=== PATIENT | female | born 1995 | race Caucasian/White ===

== ENCOUNTER 2022-02-24 16:15 | Emergency (ER) | payer OTHER, SELFPAY ==
[2022-02-24 16:17] VITALS: BP 125/88; PULSE 94; RESP 15; TEMP 36.6; O2SAT 99; BMI 23.4
--- NOTE | 2022-02-24 16:48 | US_ITS ---
We are attempting to reach an attending provider to discuss findings. An addendum with communication details will be sent when the communication is complete. STUDY: FIRST TRIMESTER OBSTETRICAL ULTRASOUND REASON FOR EXAM: Female, 26 years old. right side pain -- hcg yesterday 2200, neg IUP outside hospital TECHNIQUE: Transvaginal US was obtained to better visualized the ovaries. TECHNICAL QUALITY: Adequate. PRIOR ULTRASOUND: None. FINDINGS: There is visualization of a single gestational sac and decidual reaction within the right cornual. The diameter (MSD) measures 3.6 mm, indicating an estimated gestational age (EGA) of 5 weeks, 1 days. The gestational sac shape is within normal limits. There is no demonstrated yolk sac. The placenta is non-visualized. There is no demonstrated embryo ( pole). The estimated gestation age (EGA) by LMP is 5 weeks, 1 days. The estimated date of delivery (KLAUS) by LMP is 8.9.23. The estimated gestation age (EGA) by US is 5 weeks, 1 days. The estimated date of delivery (KLAUS) by US is 8.9.23. The uterus measures 8.3 cm. There is no demonstrated uterine fibroid. The cervix is closed. The right ovary measures 4.5 cm. There is no right ovarian cyst. There is a right adnexal mass measuring 28 mm. The left ovary measures 4.3 cm. There is no left ovarian cyst. There is no visualized left adnexal mass or complex lesion. There is a moderate amount of fluid in the cul de sac. Within the fluid there is an echogenic focus measuring 3.6mm which may be related to blood products. US/Transvaginal w/Preg US IMPRESSION: There is the appearance of a gestational sac in the right cornual region concerning for a cornual ectopic . There is a moderate amount of fluid in the cul de sac. Critical finding called and case discussed. Electronically Signed: Tam Osullivan MD at 18:19 EST ,
--- NOTE | 2022-02-24 16:53 | EDS_ITS ---
HPI HPI - Female History of Present Illness Chief Complaint: Informant: patient and spouse/S.O. Narrative Narrative: 3 weeks gestation by dates presents after discussing with her OB Dr. Marvin told to return to the ED for evaluation. She was seen in the office 2 days ago right pelvic discomfort. Her office ultrasound was negative had questionable right-sided cyst. I was sent to the ED to rule out ectopic . She had an ectopic on left side 6 years ago that ruptured need emergent surgery in [facility]. She is told if again to get checked out. She followed up. She went to hospital in [place] and worked up in the ED. Reviewing records through [employer] patient had hCG of 2200 and ultrasound negative for IUP . She was told to follow-up in 2 days. Persistent discomfort for 2 days however today reported fever. No vomiting or diarrhea. No urinary symptoms. Today noted mild spotting. Pain has not worsened. Prior similar symptoms: No PFSH PFSH Home Medications NK 02/24/22 [History Last Taken Unknown] Allergy/AdvReac Type Severity Reaction Status Date / Time No Known Allergies Allergy Verified 02/24/22 16:19 Social History Smoking Status: Never smoker ROS ROS ED Constitutional Constitutional ED: Reports fever(s); Denies chills or sweats Eyes Eyes: Denies change in vision ENT ENT ED: Denies dysphagia or sore throat Cardiovascular Cardiovascular: Denies chest pain, leg edema, palpitations or racing heartbeat Respiratory/Chest Respiratory/Chest: Denies cough, dyspnea or dyspnea on exertion Gastrointestinal Gastrointestinal: Denies abdominal pain, diarrhea, nausea or vomiting Genitourinary Genitourinary ED: Reports other Details: Right lower pain with vaginal spotting. ; Denies dysuria, hematuria or urinary frequency Musculoskeletal Musculoskeletal: Denies back pain, extremity pain or neck pain Integumentary Denies rash or wounds Neurologic Neurologic: Denies headache(s), paresthesias or weakness EXAM Physical Exam Const Vital Signs: 02/24/22 16:17 02/24/22 18:16 02/24/22 20:07 Temperature 97.8 F Temperature Source Temporal Pulse Rate 94 87 Respiratory Rate 15 16 15 Blood Pressure 125/88 H 143/79 H Blood Pressure Mean 100 100 Pulse Ox 99 97 Oxygen Delivery Method Room Air Room Air 02/24/22 21:19 Temperature 97.3 F L Temperature Source Pulse Rate 83 Respiratory Rate 15 Blood Pressure 143/79 H Blood Pressure Mean 100 Pulse Ox 100 Oxygen Delivery Method Positive well nourished and well developed General Appearance ED: well developed and NAD HEENT Reports moist mucous membranes normocephalic and atraumatic Eyes PERRL, EOMs intact bilaterally and conjunctivae normal General Eye ED: Yes normal appearance of both eyes Neck no lymphadenopathy and supple General: Negative for tenderness Chest Wall Chest: Negative for tenderness Resp normal respiratory effort and normal air movement Effort and Inspection: symmetric chest movement; Negative for respiratory distress Cardio regular rate, regular rhythm and no murmurs Peripheral Pulses: pulses 2+ throughout GI normal to inspection, nondistended, normoactive bowel sounds GI Narrative: Mild tenderness more in the right lower quadrant. There is no pelvic tenderness. No guarding or rebound. Negative Rovsing's. Palpation: Negative for guarding or rebound tenderness present Back/Spine no CVA tenderness and no thoracic nor lumbar tenderness Extremity normal to inspection General Extremety ED: Negative for edema or tenderness General Extremity: Negative for edema Neuro oriented x3 and no sensory deficits noted Sensorium / Orientation: awake and alert Skin no rashes or lesions noted and no wounds MDM MDM MDM Narrative Medical decision making narrative: Patient with a nonsurgical abdomen. She is positive yesterday with hCG 2208 with a negative ultrasound. Persistent symptoms today. Work-up initiated. White count 7.9 hemoglobin 11.7. hCG quant today 2523. Rh+ blood type a. Ultrasound discussion with radiology has a right corneul ectopic . There is moderate free fluid in the pelvis possibly blood. Her blood pressure stable. I spoke with on-call ASSISTANT TECHNICIAN Dr. De Leon, region is high risk. She reviewed the imaging spoke with her colleagues and to [facility] with Dr. Hubbard, patient will be transported to [facility] OB triage for evaluation and treatment there. Patient and family updated. Lab Data Attestation: I reviewed the patient's lab results. Labs: Laboratory Results - last 24 hr 02/24/22 02/24/22 02/24/22 16:57 16:57 16:57 WBC 7.9 RBC 4.62 Hgb 11.7 L Hct 37.4 MCV 81.0 MCH 25.3 L MCHC 31.3 L RDW Std Deviation 37.3 RDW Coeff of [place] 12.8 Plt Count 231 MPV 10.0 Immature Gran % (Auto) 0.300 Neut % (Auto) 63.4 Lymph % (Auto) 25.4 [place] % (Auto) 9.4 Eos % (Auto) 1.1 Baso % (Auto) 0.4 Absolute Neuts (auto) 5.0 Absolute Lymphs (auto) 2.01 Nucleated RBC % 0 PT 13.3 INR 1.0 APTT 26.6 Sodium 140 Potassium 3.6 Chloride 108 H Carbon Dioxide 24.0 Anion Gap 8 BUN 10 Creatinine 0.67 Estim Creat Clear Calc 127.23 Est GFR (MDRD) Af Amer 136 Est GFR (MDRD) Non-Af 112 BUN/Creatinine Ratio 15.0 Glucose 108 H Calcium 9.1 HCG, Quant Urine Color Urine Clarity Urine pH Ur Specific [place] Urine Protein Urine Glucose (UA) Urine Ketones Urine Occult Blood Urine Nitrite Urine Bilirubin Urine Urobilinogen Ur Leukocyte Esterase Urine Test Blood Type Antibody Screen 02/24/22 02/24/22 02/24/22 16:57 17:00 18:36 WBC RBC Hgb Hct MCV MCH MCHC RDW Std Deviation RDW Coeff of [place] Plt Count MPV Immature Gran % (Auto) Neut % (Auto) Lymph % (Auto) [place] % (Auto) Eos % (Auto) Baso % (Auto) Absolute Neuts (auto) Absolute Lymphs (auto) Nucleated RBC % PT INR APTT Sodium Potassium Chloride Carbon Dioxide Anion Gap BUN Creatinine Estim Creat Clear Calc Est GFR (MDRD) Af Amer Est GFR (MDRD) Non-Af BUN/Creatinine Ratio Glucose Calcium HCG, Quant 2523 H Urine Color Yellow Urine Clarity Clear Urine pH 6.5 Ur Specific [place] 1.010 Urine Protein Negative Urine Glucose (UA) Normal Urine Ketones Negative Urine Occult Blood Negative Urine Nitrite Negative Urine Bilirubin Negative Urine Urobilinogen Normal Ur Leukocyte Esterase Negative Urine Test Positive H Blood Type A POSITIVE Antibody Screen NEGATIVE Radiography Diagnostic Testing: Clinical Impression(s) from Imaging Studies Obstetrics Ultrasound 02/24/22 16:48 IMPRESSION: There is the appearance of a gestational sac in the right cornual region concerning for a cornual ectopic . There is a moderate amount of fluid in the cul de sac. Critical finding called and case discussed. Electronically Signed: Tam Osullivan MD at 18:19 EST , ADDENDUM: 02/24/22 1853 IMPRESSION: There is the appearance of a gestational sac in the right cornual region concerning for a cornual ectopic . There is a moderate amount of fluid in the cul de sac. Critical finding called and case discussed. N.B. : The above Results were Read Back by Tam Osullivan MD to MD bibi, and understanding confirmed on 02/24/2022 18:46:14 (ET). Electronically Signed: Tam Osullivan MD at 18:19 EST , Critical Care Time Critical Care Time: Yes Critical care time (excluding procedures): 30-74 minutes, Discussing w/Patient &/or Family/Food Service Order Clerk, Discussing w/Consultants, Arranging Admission or Transfer, Performing Direct Patient Care at Bedside and - (35 minutes) Discharge Plan Triage Chief Complaint: ED Provider: Maciej Guevara Dx/Rx/DC Orders Clinical Impression: Ectopic , Pelvic pain Prescriptions: No Action NK Primary Care Provider: Shayan Pool Referrals: [facility] Doctor,Out of [Non-Staff] - Disposition Disposition: DC/Tx to Another Type of HCF Discharge Location: [facility] [place] Discharge Date/Time: 02/24/22 22:52
[2022-02-24 17:10] LABS: Absolute Lymphocyte Count 2.01 X10^3/uL (0.83-4.51); Basophil# 0.03 X10^3/uL; Basophil% 0.4 % (0-1); Eosinophil# 0.09 X10^3/uL; Eosinophils% 1.1 % (0-5); Hematocrit 37.4 % (37-47); Hemoglobin 11.7 g/dL (12.0-15.0); Lymphocyte # 2.01 X10^3/ul (0.83-4.51); Lymphocyte % 25.4 % (19-41); Mean Corp Hgb Conc 31.3 g/dL (32-36); Mean Corpuscular Hgb 25.3 pg (27.0-32.0); Monocyte# 0.74 X10^3/uL; Monocyte% 9.4 % (0-10); NRBC Flagged by Analyzer 0 % (0-5); Neutrophil # 5.01 X10^3/uL (2.7-7.7); Neutrophil % 63.4 % (47-70); Platelet Count 231 K/mm3 (150-450); RBC Distribution Width CV 12.8 % (11.6-14.6); RBC Distribution Width SD 37.3 fl (35.1-43.9); Red Blood Count 4.62 M/mm3 (4.2-5.4); White Blood Count 7.9 K/mm3 (4.4-11.0)
[2022-02-24 17:12] LABS: Color, Urine Yellow (Yellow); Glucose, Dipstick Normal (Normal); Ketone-Dipstick Negative (Negative); Leukocyte Esterase-Dipstick Negative /ul (Negative); Nitrite-Dipstick Negative (Negative); Occult Blood-Urine Negative /ul (Negative); Protein-Dipstick Negative (Negative); Urine Bilirubin Dipstick Negative (Negative); Urine Clarity Clear (Clear); Urine Urobilinogen Normal (Normal); Urine pH 6.5 (5.0 - 8.0)
[2022-02-24 17:15] LABS: Internal QC Validated? YES +Cl - CLEAR BKGD; Pregnancy, Urine Positive Negative
[2022-02-24 17:17] LABS: Partial Thromboplast Time 26.6 Seconds (24.1-36.2); Prothrombin Time (Protime)PT. 13.3 SECONDS (11.7-14.9)
[2022-02-24 17:23] LABS: Anion Gap 8 (5-15); BUN 10 mg/dL (7-18); Calcium,Total 9.1 mg/dL (8.5-10.1); Chloride 108 mmol/L (98-107); Creatinine, Serum 0.67 mg/dL (0.55-1.02); EST Glomerular Filtration Rate 112 mL/min (>60); Est Glom Filt Rate - Afr Amer 136 mL/min (>60); Estimated Creatinine Clearance 127.23 ml/min; Glucose 108 mg/dL (74-106); Potassium 3.6 mmol/L (3.5-5.1); Sodium Level 140 mmol/L (136-145)
[2022-02-24 18:11] LABS: hCG Titer Quant., Serum 2523 mIU/mL (1-3)
[2022-02-24 18:16] VITALS: RESP 16
--- NOTE | 2022-02-24 19:19 | PCM.CONS.GEN ---
Assessment & Plan Assessment/Plan (1) Ectopic : PLAN: Patient was evaluated by her OB provider yesterday with pelvic discomfort and reports HCG quant of 2,200 with US showing a right adnexal cyst. Unknown LMP with irregular cycle. She was scheduled for follow up tomorrow. She presents to the ER tonight with chills and spotting. HCG quant is ~2,500. Ultrasound concerning for cornual ectopic . There is also a right adnexal complex cyst with some free fluid present. VSS and Hgb 11. Abd exam is benign and she is not having significant pain. No symptoms of anemia. Reviewed images and patient with my partners for a second opinion and agree with transfer to a tertiary care center given concern for cornual ectopic as patient is currently stable. Call placed to [facility] and transfer accepted by Dr. Hubbard. Discussed with ER efren who will work on transporting patient to [facility] for further management. HPI Consult Data Date of Consult: 02/24/22 HPI Narrative Reason for Consultation: ectopic HPI Narrative: IVONNE TADEO, is a 26 F who presents with spotting and chills. She states she thinks she is about 3 weeks . She is uncertain of her LMP and h/o irregular menstrual cycles with menses q 5-6 weeks. She sees an [facility] in [place]. She presented to her OB office yesterday with pelvic discomfort. She reports HCG quant at that time was 2,200 and she had a pelvic US that showed a right adnexal cyst. She was schedule for a repeat HCG quant and US tomorrow. She came into the ER given chills and brown-red spotting. She reports her pain is unchanged. No severe pain. She describes her right sided pelvic pain as a mild discomfort. No lightheadedness or dizziness. She reports this is her second . She states her first was an ectopic and she had a laparoscopic right salpingectomy. [facility] Home Medications NK 02/24/22 [History Last Taken Unknown] Allergy/AdvReac Type Severity Reaction Status Date / Time No Known Allergies Allergy Verified 02/24/22 16:19 Social History Smoking Status: Never smoker Physical Exam Const alert, no apparent distress and healthy appearing General Appearance: comfortable HEENT normocephalic Resp normal respiratory effort GI soft to palpation and non-distended GI Narrative: No rebounding, no guarding, no rigidity, non tender Lab / Micro Data Result Diagrams: 02/24/22 16:57 02/24/22 16:57 Labs: Laboratory Results - last 24 hr 02/24/22 16:57: WBC 7.9, RBC 4.62, Hgb 11.7 L, Hct 37.4, MCV 81.0, MCH 25.3 L, MCHC 31.3 L, RDW Std Deviation 37.3, RDW Coeff of [place] 12.8, Plt Count 231, MPV 10.0, Immature Gran % (Auto) 0.300, Neut % (Auto) 63.4, Lymph % (Auto) 25.4, [place] % (Auto) 9.4, Eos % (Auto) 1.1, Baso % (Auto) 0.4, Absolute Neuts (auto) 5.0, Absolute Lymphs (auto) 2.01, Nucleated RBC % 0 02/24/22 16:57: PT 13.3, INR 1.0, APTT 26.6 02/24/22 16:57: Sodium 140, Potassium 3.6, Chloride 108 H, Carbon Dioxide 24.0, Anion Gap 8, BUN 10, Creatinine 0.67, Estim Creat Clear Calc 127.23, Est GFR (MDRD) Af Amer 136, Est GFR (MDRD) Non-Af 112, BUN/Creatinine Ratio 15.0, Glucose 108 H, Calcium 9.1 02/24/22 16:57: HCG, Quant 2523 H 02/24/22 17:00: Urine Color Yellow, Urine Clarity Clear, Urine pH 6.5, Ur Specific [place] 1.010, Urine Protein Negative, Urine Glucose (UA) Normal, Urine Ketones Negative, Urine Occult Blood Negative, Urine Nitrite Negative, Urine Bilirubin Negative, Urine Urobilinogen Normal, Ur Leukocyte Esterase Negative, Urine Test Positive H Radiology Impression Obstetrics Ultrasound 02/24/22 16:48 IMPRESSION: There is the appearance of a gestational sac in the right cornual region concerning for a cornual ectopic . There is a moderate amount of fluid in the cul de sac. Critical finding called and case discussed. Electronically Signed: Tam Osullivan MD at 18:19 EST , ADDENDUM: 02/24/22 1853 IMPRESSION: There is the appearance of a gestational sac in the right cornual region concerning for a cornual ectopic . There is a moderate amount of fluid in the cul de sac. Critical finding called and case discussed. N.B. : The above Results were Read Back by Tam Osullivan MD to MD bibi, and understanding confirmed on 02/24/2022 18:46:14 (ET). Electronically Signed: Tam Osullivan MD at 18:19 EST ,
[2022-02-24 20:07] VITALS: BP 143/79; PULSE 87; RESP 15; O2SAT 97
[2022-02-24 21:19] VITALS: BP 143/79; PULSE 83; RESP 15; TEMP 36.3; O2SAT 100
== END 2022-02-24 22:52 | disposition other institution (70) ==
PROVIDERS: Emergency Provider Emergency Medicine; Visit Provider Emergency Medicine
DX: O00.90 Unspecified ectopic pregnancy without intrauterine pregnancy (principal); O26.851 Spotting complicating pregnancy, first trimester; R10.2 Pelvic and perineal pain; O26.891 Other specified pregnancy related conditions, first trimester; Z3A.01 Less than 8 weeks gestation of pregnancy
CPT/HCPCS: 76817; 80048; 81002; 81025; 84702; 85025; 85610; 85730; 86850; 86900; 86901; 87811; 99284; A4216